=== PATIENT | female | born 1990 | race Caucasian/White ===

== ENCOUNTER → 2024-02-10 14:07 | Outpatient (REF) | payer OTHER, SELFPAY | LOC: RAD 14:07 | PROVIDERS: ATTENDING PHYSICIAN Family Medicine | DX: M25.552 Pain in left hip (principal) | CPT/HCPCS: 72110; 73523 ==

== ENCOUNTER → 2025-02-28 11:01 | Outpatient (REF) | payer OTHER, SELFPAY | LOC: DHSLP 11:01 | PROVIDERS: ATTENDING PHYSICIAN Internal Medicine; FAMILY PHYSICIAN Family Medicine | DX: G47.30 Sleep apnea, unspecified (principal); R06.83 Snoring; E66.3 Overweight; Z68.29 Body mass index [BMI] 29.0-29.9, adult | CPT/HCPCS: 95800 ==